=== PATIENT | female | born 1995 | race Asian ===

== ENCOUNTER 2022-09-13 09:56 | Emergency (ER) | payer OTHER ==
[~2022-09-13] VITALS: Ht 162.6 cm; Wt 61.2 kg
[2022-09-13 10:17] VITALS: BP 120/70
[2022-09-13] MEDS ORDERED: CYCL5TAB PO (11:08)
[2022-09-13] MEDS ORDERED: LIDO30AD10 TP (11:08)
[2022-09-13] MEDS ORDERED: LIDOCAINE 5% (PATCH) 1 EA PATCH TP ONE (11:15)
[2022-09-13] MEDS ORDERED: IBUPROFEN 600 MG TABLET ONE (11:16)
[2022-09-13] MEDS ORDERED: CYCLOBENZAPRINE 10 MG TABLET ONE (11:16)
[2022-09-13] MEDS ORDERED: IBUPROFEN 600 MG TABLET PO ONE (11:30)
[2022-09-13] MEDS ORDERED: CYCLOBENZAPRINE 10 MG TABLET PO ONE (11:30)
[2022-09-13] MEDS ORDERED: LIDOCAINE 5% (PATCH) 1 EA PATCH TP SCH (11:30)
== END 2022-09-13 11:25 | disposition home or self-care (01) ==
LOC: ER 09:56
DX: M25.512 Pain in left shoulder (principal); F41.9 Anxiety disorder, unspecified